=== PATIENT | male | born 1960 | race Asian ===

== ENCOUNTER 2020-04-02 09:45 | Inpatient (IN) | payer OTHER ==
[~2020-04-02] VITALS: Ht 152.4 cm; Wt 78.9 kg
[2020-04-02 12:00] VITALS: BP 127/77
[2020-04-02] MEDS ORDERED: ISOS30TA4 PO (12:28)
[2020-04-02] MEDS ORDERED: ATOR80TA PO (12:28)
[2020-04-02] MEDS ORDERED: NITR0.4S29 SL (12:28)
[2020-04-02] MEDS ORDERED: FAMO-12 PO (12:28)
[2020-04-02] MEDS ORDERED: ALIR1INJ SC (12:28)
[2020-04-02] MEDS ORDERED: OMEG100062 PO (12:28)
[2020-04-02] MEDS ORDERED: LISI-646 PO (12:28)
[2020-04-02] MEDS ORDERED: ASPI325T4 PO (12:28)
[2020-04-02] MEDS ORDERED: CLOP75TA41 PO (12:28)
[2020-04-02] MEDS ORDERED: ISOS1TAB PO (12:28)
[2020-04-02] MEDS ORDERED: METF-370 PO (12:28)
[2020-04-02] MEDS ORDERED: FINA5TAB4 PO (12:28)
[2020-04-02] MEDS ORDERED: EMPA1TAB3 PO (12:28)
[2020-04-02] MEDS ORDERED: RANO1000 PO (12:28)
[2020-04-02] MEDS ORDERED: METO25TA5 PO (12:28)
[2020-04-02] MEDS ORDERED: PANT1INJ3 PO (12:28)
[2020-04-02] MEDS ORDERED: MORPHINE SULF INJ 2 MG/ML SYRINGE 1ML IV PRN (13:00)
[2020-04-02] MEDS ORDERED: DEXTROSE (50%) 50ML SYRG IV PRN (13:00)
[2020-04-02 13:43] LABS: Basophils # (auto) 0.1 10 ^3/uL (0-0.2); Eosinophils # (auto) 0.1 10 ^3/uL (0-0.8); Eosinophils % (auto) 1.4 % (0.0-7.0); Hematocrit 51.8 % (41.0-53.0); Hemoglobin 17.4 g/dL (13.5-17.5); Lymphocytes # (auto) 2.8 10 ^3/uL (0.4-5.4); Lymphocytes % (auto) 29.7 % (10.0-50.0); Mean Corpuscular Hemoglobin 31.1 pg (28.0-32.0); Mean Corpuscular Hgb Conc. 33.5 g/dL (32.0-36.0); Mean Corpuscular Volume 92.7 fL (80.0-100.0); Monocytes # (auto) 0.9 10 ^3/uL (0-1.3); Monocytes % (auto) 9.8 % (0.0-12.0); Neutrophils # (auto) 5.5 10 ^3/uL (1.6-8.6); Neutrophils % (auto) 58.1 % (37.0-80.0); Nucleated Red Blood Cells % 0.3 %; Platelet Count (auto) 281 10^3/uL (140-450); Red Blood Cells 5.59 10^6/uL (4.5-5.90); Red Cell Distribution Width 13.4 % (11.8-14.3); White Blood Cell 9.4 10^3/uL (4.4-10.8)
[2020-04-02 14:04] LABS: Anion Gap 2 (5-15); BUN/Creatinine Ratio 12.4; Blood Urea Nitrogen 13 mg/dL (7-18); Calcium 8.4 mg/dL (8.5-10.1); Carbon Dioxide 30 mmol/L (21-32); Chloride 106 mmol/L (98-107); GFR African American 93 mL/min; GFR Non-African American 77 mL/min; Glucose 101 mg/dL (74-106); Potassium 4.5 mmol/L (3.5-5.1); Sodium 138 mmol/L (136-145)
[2020-04-02] MEDS ORDERED: CLOPIDOGREL 300 MG TAB PO ONE (15:45)
[2020-04-02 16:26] LABS: Urine Bacteria NONE SEEN /hpf (None Seen); Urine Blood Negative /uL (Negative); Urine Mucus FEW (None Seen); Urine Specific Gravity 1.025 (1.001-1.035); Urine WBC <1 /hpf (0 - 3)
[2020-04-02] MEDS: ENOXAPARIN SOD 80 MG/0.8ML SYRINGE SC SCH ×2 (16:29→22:46)
[2020-04-02] MEDS: RANOLAZINE ER 500 MG TAB PO SCH ×2 (16:29→22:46)
[2020-04-02] MEDS: InsuLIN REG 1unit/0.01ml Soln (100units/ml) SC SCH ×2 (17:00→22:41)
[2020-04-02] MEDS: ACCU-CHEK COMFORT CURVE STRIP VI SCH ×2 (17:07→22:46)
[2020-04-02 17:16] VITALS: BP 115/70
[2020-04-02 22:00] VITALS: BP 118/69
[2020-04-02] MEDS: ATORVASTATIN 20 MG TAB PO SCH (22:45)
[2020-04-02] MEDS: METOPROLOL TARTRATE 25 MG TAB PO SCH (22:46)
[2020-04-03 05:00] VITALS: BP 125/67
[2020-04-03] MEDS: ACCU-CHEK COMFORT CURVE STRIP VI SCH ×4 (06:28→21:35)
[2020-04-03] MEDS: InsuLIN REG 1unit/0.01ml Soln (100units/ml) SC SCH ×4 (06:29→21:37)
[2020-04-03] MEDS: RANOLAZINE ER 500 MG TAB PO SCH ×2 (08:58→21:31)
[2020-04-03] MEDS: METOPROLOL TARTRATE 25 MG TAB PO SCH (08:58)
[2020-04-03] MEDS: ASPirin 81 mg TAB PO SCH (08:59)
[2020-04-03] MEDS: PANTOPRAZOLE 40 MG TAB PO SCH (08:59)
[2020-04-03] MEDS: ENOXAPARIN SOD 80 MG/0.8ML SYRINGE SC SCH ×2 (08:59→21:35)
[2020-04-03] MEDS: FINASTERIDE 5 MG TAB PO SCH (08:59)
[2020-04-03] MEDS: CLOPIDOGREL BISULFATE 75 MG TAB PO SCH (08:59)
[2020-04-03] MEDS: NITROGLYCERIN 0.2MG/HR TOPICAL PATCH TD SCH (09:00)
[2020-04-03] MEDS: ACETAMINOPHEN 500 MG TAB PO PRN (09:07)
[2020-04-03] MEDS: NITROGLYCERIN 0.4 MG SL TAB SL PRN ×2 (12:32→12:37)
[2020-04-03 13:23] VITALS: BP 114/46
[2020-04-03 13:25] VITALS: BP 124/73
[2020-04-03 17:07] VITALS: BP 119/78
[2020-04-03] MEDS: ATORVASTATIN 20 MG TAB PO SCH (21:29)
[2020-04-03] MEDS: METOPROLOL TARTRATE 50 MG TAB PO SCH (21:31)
[2020-04-03 22:30] VITALS: BP 126/82
[2020-04-04 04:59] VITALS: BP 116/68
[2020-04-04] MEDS: ACCU-CHEK COMFORT CURVE STRIP VI SCH ×4 (06:54→21:04)
[2020-04-04] MEDS: InsuLIN REG 1unit/0.01ml Soln (100units/ml) SC SCH ×4 (06:55→21:04)
[2020-04-04 09:00] VITALS: BP 128/73
[2020-04-04] MEDS: ASPirin 81 mg TAB PO SCH (09:23)
[2020-04-04] MEDS: CLOPIDOGREL BISULFATE 75 MG TAB PO SCH (09:28)
[2020-04-04] MEDS: METOPROLOL TARTRATE 50 MG TAB PO SCH ×2 (09:28→21:03)
[2020-04-04] MEDS: FINASTERIDE 5 MG TAB PO SCH (09:28)
[2020-04-04] MEDS: RANOLAZINE ER 500 MG TAB PO SCH ×2 (09:29→21:04)
[2020-04-04] MEDS: PANTOPRAZOLE 40 MG TAB PO SCH (09:29)
[2020-04-04] MEDS: ENOXAPARIN SOD 80 MG/0.8ML SYRINGE SC SCH ×2 (09:29→20:11)
[2020-04-04] MEDS: NITROGLYCERIN 0.2MG/HR TOPICAL PATCH TD SCH (09:30)
[2020-04-04 13:00] VITALS: BP 117/79
[2020-04-04 17:00] VITALS: BP 117/75
[2020-04-04 18:49] LABS: INR 1.02 (0.9-1.15)
[2020-04-04] MEDS: ATORVASTATIN 20 MG TAB PO SCH (21:03)
[2020-04-04 23:40] VITALS: BP 129/81
[2020-04-05] VITALS (7 sets, daily range): BP systolic 107–143; BP diastolic 70–87
[2020-04-05] MEDS: InsuLIN REG 1unit/0.01ml Soln (100units/ml) SC SCH ×4 (06:27→21:44)
[2020-04-05] MEDS: ACCU-CHEK COMFORT CURVE STRIP VI SCH ×4 (06:27→21:33)
[2020-04-05] MEDS ORDERED: ANGIOMAX 250 MG VIAL IV ONE ×2 (09:52→12:43)
[2020-04-05] MEDS ORDERED: fentaNYL CITRATE 100 MCG/2 ML VL ONE ×2 (09:52→12:43)
[2020-04-05] MEDS ORDERED: IOHEXOL 350 MG/ML 100ML IJ ONE (09:53)
[2020-04-05] MEDS ORDERED: LIDOCAINE 2%HCL (LOCAL ANESTH.) INJ 20ML MDV ONE ×2 (09:53→12:43)
[2020-04-05] MEDS ORDERED: MIDAZOLAM HCL 1MG/1ML-2 ML VIAL ONE ×2 (09:53→12:43)
[2020-04-05] MEDS ORDERED: SODIUM CHL 0.9% 50 ML ONE ×2 (09:53→12:43)
[2020-04-05] MEDS: NITROGLYCERIN 0.2MG/HR TOPICAL PATCH TD SCH (10:00)
[2020-04-05] MEDS: PANTOPRAZOLE 40 MG TAB PO SCH (10:00)
[2020-04-05] MEDS: FINASTERIDE 5 MG TAB PO SCH (10:00)
[2020-04-05] MEDS: METOPROLOL TARTRATE 50 MG TAB PO SCH ×2 (10:00→21:32)
[2020-04-05] MEDS: RANOLAZINE ER 500 MG TAB PO SCH ×2 (10:00→21:33)
[2020-04-05] MEDS: ASPirin 81 mg TAB PO SCH (10:00)
[2020-04-05] MEDS: CLOPIDOGREL BISULFATE 75 MG TAB PO SCH (10:00)
[2020-04-05] MEDS ORDERED: CLOPIDOGREL BISULFATE 75 MG TAB ONE (11:08)
[2020-04-05] MEDS ORDERED: ASPirin 81 mg TAB ONE (11:09)
[2020-04-05] MEDS: ATORVASTATIN 20 MG TAB PO SCH (21:32)
[2020-04-05] MEDS: ACETAMINOPHEN 500 MG TAB PO PRN (21:40)
[2020-04-06 05:41] VITALS: BP 127/66
[2020-04-06] MEDS: ACCU-CHEK COMFORT CURVE STRIP VI SCH ×2 (06:19→11:30)
[2020-04-06] MEDS: InsuLIN REG 1unit/0.01ml Soln (100units/ml) SC SCH ×2 (06:22→11:30)
[2020-04-06 09:10] VITALS: BP 128/77
[2020-04-06] MEDS ORDERED: LISINOPRIL 5 MG TAB PO SCH (10:00)
[2020-04-06] MEDS: NITROGLYCERIN 0.2MG/HR TOPICAL PATCH TD SCH (10:00)
[2020-04-06] MEDS: ASPirin 81 mg TAB PO SCH (10:55)
[2020-04-06] MEDS: CLOPIDOGREL BISULFATE 75 MG TAB PO SCH (10:55)
[2020-04-06] MEDS: METOPROLOL TARTRATE 50 MG TAB PO SCH (10:55)
[2020-04-06] MEDS: FINASTERIDE 5 MG TAB PO SCH (10:55)
[2020-04-06] MEDS: RANOLAZINE ER 500 MG TAB PO SCH (10:56)
[2020-04-06] MEDS: PANTOPRAZOLE 40 MG TAB PO SCH (10:56)
[2020-04-06 13:58] VITALS: BP 119/74
[2020-04-06 14:35] VITALS: BP 119/74
== END 2020-04-06 15:30 | disposition home or self-care (01) | DRG 247 ==
LOC: TELE-CENTR 12:05
PROVIDERS: ADMIT Internal Medicine; ATTEND Internal Medicine
PROC: 4A023N7 Measurement of Cardiac Sampling and Pressure, Left Heart, Percutaneous Approach (ICD-10-PCS; principal; 2020-04-05)
PROC: 027034Z Dilation of Coronary Artery, One Artery with Drug-eluting Intraluminal Device, Percutaneous Approach (ICD-10-PCS; 2020-04-05)
PROC: B2151ZZ Fluoroscopy of Left Heart using Low Osmolar Contrast (ICD-10-PCS; 2020-04-05)
PROC: B2111ZZ Fluoroscopy of Multiple Coronary Arteries using Low Osmolar Contrast (ICD-10-PCS; 2020-04-05)
PROC: 02703ZZ Dilation of Coronary Artery, One Artery, Percutaneous Approach (ICD-10-PCS; 2020-04-05)
DX: T82.855A Stenosis of coronary artery stent, initial encounter (principal); I25.110 Atherosclerotic heart disease of native coronary artery with unstable angina pectoris; Q25.0 Patent ductus arteriosus; E11.9 Type 2 diabetes mellitus without complications; E78.5 Hyperlipidemia, unspecified; I10 Essential (primary) hypertension; Z79.899 Other long term (current) drug therapy; Z95.1 Presence of aortocoronary bypass graft; Z91.14 Patient's other noncompliance with medication regimen
CPT/HCPCS: 36415; 71045; 80048; 81001; 82962; 83036; 84484; 85025; 85610; 86850; 86900; 86901; 87081; 92928; 93306; 93452; 99152; 99153; C1874; G0378; J1815; J2250

== ENCOUNTER → 2023-09-27 | Outpatient (CLI) | payer OTHER ==
[~2023-09-27] MED LIST: ALIR75IN2 SC; ASPI325T4 PO; ATOR80TA PO; CLOP75TA70 PO; EMPA1TAB3 PO; FAMO-12 PO; FINA5TAB4 PO; ISOS1TAB PO; ISOS1TAB28 PO; LISI20TA56 PO; METF-370 PO; METO25TA5 PO; NITR0.4S29 SL; OMEG100062 PO; PANT1INJ3 PO; RANO1000 PO
== END | disposition home or self-care (01) ==
LOC: XYW 07:46
PROVIDERS: ATTEND Specialist
DX: R06.02 Shortness of breath (principal); I27.20 Pulmonary hypertension, unspecified; I50.9 Heart failure, unspecified; I25.10 Atherosclerotic heart disease of native coronary artery without angina pectoris
CPT/HCPCS: 71046; 78582; A9540; A9558